=== PATIENT | female | born 1945 | race Caucasian/White ===

== ENCOUNTER → 2016-07-11 | Outpatient (CLI) | payer OTHER ==
[~2016-07-11] MED LIST: ASPIRIN81 M2 PO; BENAZEPRIL HCL5 MG PO; HYDROCHLOROTHIA25 M1 PO; NORCO 5-325 TA1 EACH PO; SIMVASTATIN10 MG PO; TOPROL XL50 MG
--- NOTE | ~2016-07-11 | 2DMMODE ---
[facility] [place] [address] 2 D/M-MODE ECHOCARDIOGRAM Name: MARY GREGORY Room #: REG [facility]#: [id number] Admission: 07/11/16 Attend Phys: Christopher Messina MD Discharge: Date of : 43 Date of Service: 07/11/16 0909 Report #: [id number] THIS REPORT FOR: //name// Transthoracic Echocardiography Ordering physician: Christopher Messina MD Referring physician: Greg Hatfield MD Perkins, Patrick J. Director Of Institutional Research: Radha Yoder Indications/History: Arrhythmia, SVT. Hx: HTN, HLP BP: 142 / HR: 51bpm Height: 64in Weight: 177.6lb 70 Study data: M-mode, complete 2D, complete spectral Doppler, and color Doppler. Location: Echo laboratory. Routine. Image quality was adequate. 2D measurements Normal Normal LVID ED 49mm 36-57 IVS ED 7.9mm 6-11 LVID ES 31.9mm 23-40 LVPW ED 8.3mm 6-11 LA volume 28ml/m2 16-28 AoRoot diam 36.2mm 21-37 index ED LVOT diameter 20mm 18-23 Findings: Left ventricle: The cavity size was normal. Wall thickness was normal. Systolic function was normal. The estimated ejection fraction was in the range of 55% to 60%. Wall motion was normal. Right ventricle: The cavity size was normal. Systolic function was normal. Right atrium: The atrium was normal in size. Left atrium: The atrium was normal in size. Volume index: 28ml/m2 (S). Aortic valve: Structurally normal valve. Doppler: There was no stenosis. No regurgitation. [facility] [address] [place] [address] 2 D/M-MODE ECHOCARDIOGRAM Name: MARY GREGORY Room #: REG [facility]#: [id number] Admission: 07/11/16 Attend Phys: Christopher Messina MD Discharge: Date of : 43 Date of Service: 07/11/16 0909 Report #: [id number] velocity: 129.2cm/s (S). Mitral valve: Structurally normal valve. Doppler: There was no evidence for stenosis. Mild regurgitation. Peak E-wave velocity: 105.5cm/s. Peak gradient: 4.5mm Hg (D). Peak A-wave velocity: 79.8cm/s. Tricuspid valve: Structurally normal valve. Doppler: There was no evidence for stenosis. Trivial regurgitation. Regurgitant peak velocity: 206cm/s. Peak RV-RA gradient: 17mm Hg (S). Pulmonic valve: Structurally normal valve. Doppler: There was no evidence for stenosis. Trivial regurgitation. Pericardium: There was no pericardial effusion. Aorta: Aortic root: The aortic root was normal in size. Pulmonary artery: Systolic pressure was estimated to be 22mm Hg. Diastolic function: Features are consistent with a pseudonormal left ventricular filling pattern, with concomitant abnormal relaxation and increased filling pressure (grade 2 diastolic dysfunction). Systemic veins: Inferior vena cava: The vessel was normal in size; the respirophasic diameter changes were in the normal range (= 50%). Conclusions 1. Left ventricle: The cavity size was normal. Wall thickness was normal. Systolic function was normal. The estimated ejection fraction was in the range of 55% to 60%. Features are consistent with a pseudonormal left ventricular filling pattern, with concomitant abnormal relaxation and increased filling pressure (grade 2 diastolic dysfunction). 2. Right ventricle: The cavity size was normal. 3. Left atrium: The atrium was normal in size. 4. Aortic valve: Structurally normal valve. There was no stenosis. 5. Mitral valve: Structurally normal valve. Mild regurgitation. 6. Tricuspid valve: Trivial regurgitation. [facility] [address] [place] [address] 2 D/M-MODE ECHOCARDIOGRAM Name: COLTMARY L Room #: REG [facility]#: [id number] Admission: 07/11/16 Attend Phys: Christopher Messina MD Discharge: Date of : 43 Date of Service: 07/11/16 0909 Report #: [id number] 7. Pericardium, extracardiac: There was no pericardial effusion. <ELECTRONICALLY SIGNED> By: Christopher Messina MD 07/11/163 12 Christopher Messina MD /rashmi
== END ==
LOC: CV 07:13
DX: I49.9 Cardiac arrhythmia, unspecified (principal); I47.1 Supraventricular tachycardia; I10 Essential (primary) hypertension; E78.5 Hyperlipidemia, unspecified

== ENCOUNTER → 2016-11-21 | Outpatient (CLI) | payer OTHER | LOC: RAD 13:12 | DX: J45.909 Unspecified asthma, uncomplicated (principal); R05 Cough ==

== ENCOUNTER → 2018-01-22 | Outpatient (CLI) | payer OTHER | LOC: NUC 07:41 | DX: I10 Essential (primary) hypertension (principal); I47.1 Supraventricular tachycardia; R07.89 Other chest pain; E78.5 Hyperlipidemia, unspecified; J45.909 Unspecified asthma, uncomplicated ==

== ENCOUNTER → 2018-07-22 | Outpatient (CLI) | payer OTHER | LOC: RAD 03:11 | DX: Z12.31 Encounter for screening mammogram for malignant neoplasm of breast (principal) ==

== ENCOUNTER → 2018-11-27 | Outpatient (CLI) | payer OTHER ==
--- NOTE | 2018-11-30 11:01 | SLE ---
[facility] [place] [address] POLYSOMNOGRAPHY STUDY Name: MARY GREGORY Room #: REG [facility]#: [id number] Admission: 11/27/18 ������������������ Attend Phys: Rick Perez MD Discharge: ������������������ Date of : 43 Report #: [id number] THIS REPORT FOR: //name// CC: Rick Hatfield DATE OF SERVICE: 11/28/2018 SLEEP STUDY ATTENDING PHYSICIAN: Dr. Louie Ace. HISTORY: The patient is 73 years old who weighs 190 pounds with a BMI of 32.6. The patient's [place] score was 7. The patient has a history of moderate sleep apnea. The patient was referred back for BiPAP titration study. This was performed at [facility]. During the night study, the patient spent 380 minutes in bed and slept for 271 minutes with a sleep efficiency of 71%. Sleep latency was 31 minutes with a REM latency of 139 minutes. Overall, sleep architecture showed normal stage 1 sleep, increased stage 2 sleep with reduced N3 sleep and reduced REM sleep. EKG monitoring revealed an average heart rate of 45 beats per minute with a maximum of 70 beats per minute. No sustained arrhythmias observed. Occasional bradycardia was seen. No significant PVCs seen. PLMS were seen at an index of 61 per hour and 4 per hour caused EEG arousals. The patient was started on BiPAP at a pressure of 8/4 and the pressure was titrated up to 15/8. However, best results were seen at the BiPAP pressure of 13/7. At that pressure, the patient slept for 37 minutes including 17 minutes of REM sleep. The patient had supine sleep as well. The patient's AHI was reduced to 1.6 per hour and oxygen saturation remained above 88%. IMPRESSION: 1. Sleep apnea diagnosed by previous sleep study. 2. Severe periodic limb movements. RECOMMENDATIONS: 1. BiPAP at a pressure of 13/7 showed the best results and should be used on a nightly basis. 2. Follow up in 4-6 weeks to assess compliance with BiPAP and to document clinical improvement. I would also recommend review of the download data. 3. Weight loss is strongly advised. 4. Avoid [employer] depressants. [facility] [address] [place] [address] POLYSOMNOGRAPHY STUDY Name: MARY GREGORY Room #: REG [facility]#: [id number] Admission: 11/27/18 ������������������ Attend Phys: Rick Perez MD Discharge: ������������������ Date of : 43 Report #: [id number] 5. Cautioned regarding driving until symptoms of sleep apnea resolve with the use of BiPAP. 6. Patient should also be further evaluated for symptoms of restless legs during the day. ��������������������������������������������� <ELECTRONICALLY SIGNED> ���������������������������������������� By: Rick Perez MD ��������������������������������������������� 11/30/18 1101 1825 2128 Rick Perez MD /nt
== END ==
LOC: SLEEPLAB 09:42
DX: G47.33 Obstructive sleep apnea (adult) (pediatric) (principal); G47.61 Periodic limb movement disorder; J45.909 Unspecified asthma, uncomplicated; Z68.32 Body mass index [BMI] 32.0-32.9, adult

== ENCOUNTER → 2019-07-15 | Outpatient (CLI) | payer OTHER | LOC: SJCVCIMAG 10:00 | DX: I36.1 Nonrheumatic tricuspid (valve) insufficiency (principal); I27.20 Pulmonary hypertension, unspecified; R94.31 Abnormal electrocardiogram [ECG] [EKG]; I47.1 Supraventricular tachycardia; I10 Essential (primary) hypertension; E78.00 Pure hypercholesterolemia, unspecified; G47.33 Obstructive sleep apnea (adult) (pediatric); Z88.8 Allergy status to other drugs, medicaments and biological substances; Z79.82 Long term (current) use of aspirin; Z79.84 Long term (current) use of oral hypoglycemic drugs; Z79.891 Long term (current) use of opiate analgesic; Z79.2 Long term (current) use of antibiotics; Z79.899 Other long term (current) drug therapy; J45.909 Unspecified asthma, uncomplicated ==

== ENCOUNTER → 2019-07-21 | Outpatient (CLI) | payer OTHER | LOC: RAD 09:25 | DX: J45.40 Moderate persistent asthma, uncomplicated (principal); M47.814 Spondylosis without myelopathy or radiculopathy, thoracic region ==

== ENCOUNTER → 2019-08-05 | Outpatient (CLI) | payer OTHER | LOC: BC 07-28 10:38 → RAD 07-28 16:14 | DX: Z12.31 Encounter for screening mammogram for malignant neoplasm of breast (principal) ==

== ENCOUNTER → 2020-07-13 | Outpatient (CLI) | payer OTHER | LOC: SJCVC 13:52 | PROVIDERS: ATTEND Internal Medicine Cardiovascular Disease | DX: R94.31 Abnormal electrocardiogram [ECG] [EKG] (principal); I47.1 Supraventricular tachycardia; I10 Essential (primary) hypertension; R60.9 Edema, unspecified; R06.00 Dyspnea, unspecified; E78.00 Pure hypercholesterolemia, unspecified; J45.909 Unspecified asthma, uncomplicated; G47.33 Obstructive sleep apnea (adult) (pediatric); Z79.82 Long term (current) use of aspirin; Z79.899 Other long term (current) drug therapy ==

== ENCOUNTER → 2020-07-19 | Outpatient (CLI) | payer OTHER | LOC: CAT 09:56 | PROVIDERS: ATTEND Internal Medicine Cardiovascular Disease | DX: Z13.6 Encounter for screening for cardiovascular disorders (principal); I25.10 Atherosclerotic heart disease of native coronary artery without angina pectoris; E78.00 Pure hypercholesterolemia, unspecified ==

== ENCOUNTER → 2020-09-21 | Outpatient (CLI) | payer OTHER | LOC: LAB 12:07 | PROVIDERS: ATTEND Pediatrics | DX: Z01.812 Encounter for preprocedural laboratory examination (principal); Z20.822 Contact with and (suspected) exposure to COVID-19 ==

== ENCOUNTER → 2020-09-26 | Outpatient (CLI) | payer OTHER | LOC: BC 10:14 | PROVIDERS: ATTEND Family Medicine | DX: Z12.31 Encounter for screening mammogram for malignant neoplasm of breast (principal) ==

== ENCOUNTER → 2020-10-03 | Outpatient (CLI) | payer OTHER ==
--- NOTE | 2020-10-06 07:44 | SLE ---
[facility] [place] [address] POLYSOMNOGRAPHY STUDY Name: MARY GREGORY Room #: REG [facility]#: [id number] Admission: 10/03/20 Attend Phys: Rick Perez MD Discharge: Date of : 43 Report #: [id number] THIS REPORT FOR: cc: Greg Hatfield MD, Neal A. MD Khan,Rick Cameron MD ~ DATE OF SERVICE: 10/03/2020 SLEEP STUDY ATTENDING PHYSICIAN: Dr. Louie Ace. The patient is a 74-year-old who weighs 182 pounds with a BMI of 31.2. The patient's [place] score was 4. The patient has a history of moderate MARGO. In the past, the patient has been prescribed BiPAP at a pressure of 13/7. During a recent download data, patient was noted to have an AHI of 48 per hour. The patient also had an abnormal nocturnal oximetry study with 26 minutes spent with saturations of less than 88%. As a result, another BiPAP titration study was recommended. During the night study, the patient spent 432 minutes in bed and slept for 299 minutes with a sleep efficiency of 69%. Sleep latency was 38.3 minutes with a REM latency of 104 minutes. Sleep architecture showed a slightly increased stage 1 and stage 2 sleep, normal slow wave and reduced REM sleep, which was 9.5% of total sleep time. EKG monitoring revealed an average heart rate of 47 beats per minute with occasional PACs. No sustained arrhythmias observed. PLMs were seen at an index of 43 per hour and 4.6 per hour caused EEG arousals. The patient was started on BiPAP at a pressure of 10/6. However, there were increasing central apneas observed. As a result, a backup rate of 12 was added. BiPAP pressure was increased up to 13/7. However, there was only 16 minutes of sleep seen at this pressure. The best results were seen at a BiPAP pressure of 12/7. The patient had 229 minutes of sleep, including 28 minutes of supine REM sleep. The patient's AHI was 8.9 per hour and oxygen saturations remained above 89%. Backup rate of 12 was also added at this pressure. The patient had 14 central apneas and 18 hypopneas at this pressure. IMPRESSION: 1. Sleep apnea diagnosed by previous sleep study. 2. Moderate to severe PLMs. RECOMMENDATIONS: [facility] [address] [place] [address] POLYSOMNOGRAPHY STUDY Name: MARY GREGORY [id number] Admission: 10/03/20 Attend Phys: Rick Perez MD Discharge: Date of : 43 Report #: [id number] 1. Best results were seen at a BiPAP pressure of 12/7 with a backup rate of 12 without any supplemental oxygen. The patient noted to have treatment emergent central apneas throughout the night. 2. Follow up in 4-6 weeks to assess compliance with BiPAP and to document clinical improvement. 3. Weight loss to the ideal body weight is recommended. 4. Avoid [employer] depressants. 5. Cautioned regarding driving until symptoms of sleep apnea resolve with the use of BiPAP. 6. The patient should also be further evaluated for symptoms of restless legs during the day. <ELECTRONICALLY SIGNED> By: Rick Perez MD 10/06/20 0744 1347 1412 Rick Perez MD /nt
== END ==
LOC: SLEEPLAB 09-26 10:54
PROVIDERS: ATTEND Internal Medicine Critical Care Medicine
DX: G47.33 Obstructive sleep apnea (adult) (pediatric) (principal)

== ENCOUNTER → 2020-11-13 | Outpatient (CLI) | payer OTHER ==
[~2020-11-13] MED LIST changes: +ASPIRIN EC81 M1 PO; -ASPIRIN81 M2 PO; +BREO ELLIPTA 11 EACH INH; +FIBERCON625 M1 PO; +FLONASE 0.05%50 MCG NARES; +NORVASC5 MG PO; +POTASSIUM GLUCO99 M2 PO; -SIMVASTATIN10 MG PO; +SIMVASTATIN5 MG PO; +SPIRONOLACTONE25 MG PO; +STOOL SOFTENER100 MG PO; -TOPROL XL50 MG; +TOPROL XL50 MG PO
== END ==
LOC: LAB 09:55
PROVIDERS: ATTEND Family Medicine
DX: Z01.812 Encounter for preprocedural laboratory examination (principal); Z20.822 Contact with and (suspected) exposure to COVID-19

== ENCOUNTER → 2020-11-15 | Outpatient (CLI) | payer OTHER ==
[~2020-11-15] VITALS: Ht 162.6 cm; Wt 84.4 kg
--- NOTE | 2020-11-17 08:09 | P ---
[facility] [place] [address] PROCEDURE REPORT Name: MARY GREGORY Room #: REG [facility]#: [id number] Admission: 11/15/20 Attend Phys: Marcio Nolasco Discharge: Date of : 43 Report #: [id number] THIS REPORT FOR: cc: Greg Hatfield MD, Neal A. MD McElhinney, Christian C. MD ~ DOC #: [id number] cc: MD Marcio Clark MD DATE OF SERVICE: 11/15/2020 PROCEDURE PERFORMED: Colonoscopy with biopsies. HISTORY OF PRESENT ILLNESS: The patient is a 75-year-old female with a history of intermittent lower abdominal pain. She also reports previous hemorrhoid banding procedure in the past. Last colonoscopy 5 years ago, negative. She does report some diarrhea at times. Her weight has been stable. Possible family history of colon cancer. DESCRIPTION OF PROCEDURE: The risks and benefits of the procedure were explained to the patient, those risks including but not limited to bleeding, perforation and the risk of sedation. She understood these risks and gave informed consent. Sedation was given using propofol per anesthesia. Next, a digital rectal exam was initially performed, which was normal. Next, using a standard Olympus colonoscope, the scope was placed in the patient's anus and advanced under direct vision to the cecum. The overall prep was excellent. In the cecum, there was a 4 mm sessile polyp. This was removed with cold forceps, otherwise normal. Ileocecal valve was normal. The terminal ileum was intubated and normal in appearance. Ascending colon, 3 mm sessile polyp removed with cold forceps. Transverse colon was normal. Random biopsies were obtained to rule out the possibility of microscopic colitis. Descending colon was also normal. In the sigmoid colon, a 4 mm sessile polyp noted and removed with cold forceps. In the rectum, a 3-mm sessile polyp noted and removed with a cold forceps as well. On retroflexion, no abnormalities were noted. The scope was then withdrawn and the procedure terminated. The patient tolerated the procedure well. IMPRESSION: 1. Multiple small colonic polyps as described above. 2. Otherwise, normal colonoscopy. RECOMMENDATIONS: 1. Await biopsy results. 2. Recommend trial of Levsin on a p.r.n. basis. 3. If patient has continued symptoms, may need to consider imaging such as CT [address] [address] PROCEDURE REPORT Name: MARY GREGORY Room #: REG [facility]#: [id number] Admission: 11/15/20 Attend Phys: Marcio Nolasco Discharge: Date of : 43 Report #: [id number] scan of the abdomen and pelvis. Thank you for allowing me to participate in her care. Marcio Huff MD CCM/MIGDALIA <ELECTRONICALLY SIGNED> By: Marcio Huff MD 11/17/20 0809 1028 2213 Marcio Huff MD /nt
--- NOTE | 2020-11-20 18:06 | PATH ---
[facility] [address] [place] [address] PATHOLOGY RPT PROCEDURE Name: BRANDEE BHAT William Room #: REG [facility]..#: [id number] Admission: 11/15/20 Date of : 43 Discharge: Report #: [id number] Path Case #: [id number] [facility] Accession Number: [id number] . 01 Material submitted: . PART A: cecum - CECAL POLYP PART B: colon - ASCENDING COLON POLYP. Modifiers: ascending PART C: colon - RANDOM COLON BX -R/O MICROSCOPIC COLITIS PART D: sigmoid colon - SIGMOID COLON POLYP PART E: rectum - RECTAL POLYP . 01 Clinical history: . ABDOMINAL PAIN, DIARRHEA, R/O MICROSCOPIC COLITIS . 02 Diagnosis: A. Colonic mucosa, cecal polyp, biopsy: - Tubular adenoma. . B. Colonic mucosa, ascending colon polyp, biopsy: - Tubular adenoma. . C. Colonic mucosa, random colon, biopsy: - Unremarkable colonic mucosa. - Negative for increased intraepithelial lymphocytes. . D. Colonic mucosa, sigmoid colon polyp, biopsy: - Tubular adenoma. . E. Rectal-type mucosa, rectal polyp, biopsy: - Scant superficial fragments of hyperplastic polyp. . (SCA:rubén; 11/17/2020) MBDayton 11/17/2020 1114 Local . 02 Electronically signed: . Travon Landin DO, Pathologist NPI- [id number] . 01 Gross description: . A. The specimen is received in formalin, labeled "Brandee Bhat", "cecal polyp". Received are multiple segments of pale adams soft tissue ranging in size from 0.1 cm to 0.2 cm. The specimen is entirely submitted in cassette A1. . B. The specimen is received in formalin, labeled "Brandee Bhat", "ascending colon polyp". Received are 2 segments of pale adams soft tissue measuring 0.1 and 0.2 cm. The specimen [place] [address] PATHOLOGY RPT PROCEDURE Name: BRANDEE BHAT Room #: REG [facility]#: [id number] Admission: 11/15/20 Date of : 43 Discharge: Report #: [id number] Path Case #: [id number] B1. . C. The specimen is received in formalin, labeled "Brandee Bhat", "random colon biopsies rule out microscopic colitis". Received are multiple segments of pale adams soft tissue ranging in size from 0.1 cm to 0.4 cm. The specimen is entirely submitted in cassette C1. . D. The specimen is received in formalin, labeled "Cindy Bhate", "sigmoid colon polyp". Received are multiple segments of pale adams soft tissue, ranging in size from 0.1 cm to 0.4 cm. The specimen is entirely submitted in cassette D1. . E. The specimen is received in formalin, labeled "Home, Brandee", "rectal polyp". Received are a few small fragments of possible pale adams tissue, measuring 0.1 x 0.1 x 0.1 cm in aggregate dimensions. The specimen is filtered and entirely submitted in cassette E1. The specimen may not survive processing. LULU/JEAN 11/16/2020 1007 Local . 02 Pathologist provided ICD-10: D12.0, D12.2, D12.5, K62.1 . 02 CPT . 672490, 811579, 370976, 108709, 719450 Specimen Comment: A courtesy copy of this report has been sent to [phone], [phone] Specimen Comment: [id number] Specimen Comment: Report sent to / DR BARRETT Specimen Comment: A duplicate report has been generated due to demographic updates. Performed at: 01 [facility] [address] [id number] MD Juan Madrigal MD Phone: [phone] Performed at: 02 [place] [address] [address] [id number] MD Vivek Hernández MD Phone: [phone]
== END | disposition home or self-care (01) ==
LOC: GI 09:11
PROVIDERS: ATTEND Specialist
DX: R10.30 Lower abdominal pain, unspecified (principal); R19.7 Diarrhea, unspecified; D12.0 Benign neoplasm of cecum; D12.2 Benign neoplasm of ascending colon; D12.5 Benign neoplasm of sigmoid colon; K62.1 Rectal polyp; I10 Essential (primary) hypertension; E78.00 Pure hypercholesterolemia, unspecified; J45.909 Unspecified asthma, uncomplicated; G47.30 Sleep apnea, unspecified; Z98.890 Other specified postprocedural states; Z79.899 Other long term (current) drug therapy; Z98.41 Cataract extraction status, right eye; Z98.42 Cataract extraction status, left eye; Z88.8 Allergy status to other drugs, medicaments and biological substances
CPT/HCPCS: 62110; 62900

== ENCOUNTER → 2021-01-10 | Outpatient (CLI) | payer OTHER | LOC: SJCVC 09:54 | PROVIDERS: ATTEND Internal Medicine Cardiovascular Disease | DX: I47.1 Supraventricular tachycardia (principal); R00.1 Bradycardia, unspecified; I48.91 Unspecified atrial fibrillation; I10 Essential (primary) hypertension; E78.00 Pure hypercholesterolemia, unspecified; R60.9 Edema, unspecified; G47.33 Obstructive sleep apnea (adult) (pediatric); J45.909 Unspecified asthma, uncomplicated; E78.2 Mixed hyperlipidemia; Z88.1 Allergy status to other antibiotic agents; Z79.82 Long term (current) use of aspirin; Z79.899 Other long term (current) drug therapy ==

== ENCOUNTER → 2021-07-18 | Outpatient (CLI) | payer OTHER | LOC: SJCVC 10:00 | PROVIDERS: ATTEND Internal Medicine Cardiovascular Disease | DX: R94.31 Abnormal electrocardiogram [ECG] [EKG] (principal); I47.1 Supraventricular tachycardia; I10 Essential (primary) hypertension; R60.9 Edema, unspecified; E78.00 Pure hypercholesterolemia, unspecified; J45.909 Unspecified asthma, uncomplicated; G47.33 Obstructive sleep apnea (adult) (pediatric); Z72.89 Other problems related to lifestyle; Z79.82 Long term (current) use of aspirin; Z79.899 Other long term (current) drug therapy; Z88.8 Allergy status to other drugs, medicaments and biological substances ==